=== PATIENT | female | born 1975 | race Caucasian/White ===

== ENCOUNTER 2023-06-24 17:01 | Emergency (ER) | payer OTHER ==
[~2023-06-24] VITALS: Ht 160 cm; Wt 90.7 kg
[~2023-06-24 17:01] MED LIST: ACETAMINOPHEN500 MG PO; AMLODIPINE BESYL5 MG PO; AMOX TR-K CLV1 EAC2 PO; ASA81 MG; ATORVASTATIN CA20 MG PO; BETAPACE120 MG PO; CLARITIN10 M3; IBUPROFEN200 MG PO; LOSARTAN POTAS100 MG PO; NEXIUM20 MG PO; ONDANSETRON ODT4 MG PO; PROMETHAZINE-C120 ML; Z.0.PLAVIX75 MG; Z.0.PRAVACHOL20 MG PO; Z.0.TOPROL XL25 MG PO; Z.0.ZITHROMAX250 MG
[2023-06-24 17:27] VITALS: O2SAT 98
[2023-06-24] MEDS ORDERED: ANUSOL-HC25 MG RC (18:47)
[2023-06-24] MEDS ORDERED: AZITHROMYCIN250 MG PO (18:47)
== END 2023-06-24 18:55 | disposition home or self-care (01) ==
LOC: ER 17:10
DX: R05.9 Cough, unspecified (principal); J20.9 Acute bronchitis, unspecified; K64.9 Unspecified hemorrhoids; I10 Essential (primary) hypertension; E78.5 Hyperlipidemia, unspecified; I25.10 Atherosclerotic heart disease of native coronary artery without angina pectoris; I48.91 Unspecified atrial fibrillation; D64.9 Anemia, unspecified; R01.1 Cardiac murmur, unspecified; M54.9 Dorsalgia, unspecified; G89.29 Other chronic pain; I25.2 Old myocardial infarction; Z95.5 Presence of coronary angioplasty implant and graft; F17.210 Nicotine dependence, cigarettes, uncomplicated
CPT/HCPCS: 71046; 99283

== ENCOUNTER 2025-02-17 21:13 | Emergency (ER) | payer OTHER ==
[~2025-02-17] VITALS: Ht 160 cm; Wt 94.3 kg
[~2025-02-17 21:13] MED LIST changes: +AMIODARONE HCL200 MG PO; +ANUSOL-HC25 MG RC; +AZITHROMYCIN250 MG PO; +BENZONATATE100 MG PO; +FAMOTIDINE40 MG PO; +FEROSUL325 MG PO; +FUROSEMIDE40 MG PO; +LOPRESSOR25 MG PO; +MINOCYCLINE HCL50 MG PO; +PANTOPRAZOLE SO40 MG PO; +PLAVIX75 MG PO; +ROSUVASTATIN CA20 MG PO; +VENTOLIN HFA18 GM INH
[2025-02-17 21:28] VITALS: PULSE 76; RESP 20; TEMP 97.8
[2025-02-17] MEDS ORDERED: TYLENOL325 MG PO (22:23)
[2025-02-17] MEDS ORDERED: ULTRAM 50MG50 MG PO (22:23)
[2025-02-17 22:29] VITALS: BP 148/95; PULSE 76; RESP 18; TEMP 97.8; O2SAT 98
== END 2025-02-17 22:29 | disposition home or self-care (01) ==
LOC: FSED 21:19
DX: M54.50 Low back pain, unspecified (principal); V53.5XXA Driver of pick-up truck or van injured in collision with car, pick-up truck or van in traffic accident, initial encounter; Y92.488 Other paved roadways as the place of occurrence of the external cause; I10 Essential (primary) hypertension; E78.5 Hyperlipidemia, unspecified; I50.9 Heart failure, unspecified; I48.91 Unspecified atrial fibrillation; I25.10 Atherosclerotic heart disease of native coronary artery without angina pectoris; D64.9 Anemia, unspecified; R01.1 Cardiac murmur, unspecified; F41.9 Anxiety disorder, unspecified; G89.29 Other chronic pain; I25.2 Old myocardial infarction; Z95.810 Presence of automatic (implantable) cardiac defibrillator; Z95.5 Presence of coronary angioplasty implant and graft
CPT/HCPCS: 72131; 99283